=== PATIENT | female | born 1970 | race Caucasian/White ===

== ENCOUNTER → 2020-01-10 10:40 | Outpatient (CLI) | payer MEDICAID, SELFPAY | PROVIDERS: Visit Provider Family Medicine | DX: Z03.818 Encounter for observation for suspected exposure to other biological agents ruled out (principal) | CPT/HCPCS: 87635; U0003 ==

== ENCOUNTER 2024-01-18 10:19 | Observation (INO) | payer MEDICAID, SELFPAY ==
[2024-01-18] VITALS (17 sets, daily range): BP systolic 108–148; BP diastolic 82–99; PULSE 76–102; RESP 14–22; TEMP 36.7–37.2; O2SAT 93–99; BMI 31.3; BMI 27.6
--- NOTE | 2024-01-18 10:29 | EKG12_ITS ---
Test Reason : STROKE ALRT Blood Pressure : */* mmHG Vent. Rate : 72 BPM Atrial Rate : 72 BPM P-R Int : 130 ms QRS Dur : 92 ms QT Int : 396 ms P-R-T Axes : 36 26 36 degrees QTcB Int : 433 ms Normal sinus rhythm Normal ECG Confirmed by Dirk Lay ([id number]), film editor JENNIFER OTTO ([id number]) on 01/19/2024 6:32:53 AM Referred By: Confirmed By: Dirk Lay
--- NOTE | 2024-01-18 10:30 | ED.VIS.STROK ---
HPI History of Present Illness Chief Complaint: Weakness Informant: patient Narrative Narrative: Patient is a 53-year-old female with history of diabetes mellitus, TIA presenting with left sided weakness and paresthesias. Patient states he felt fine when she went to bed last night. She notes she has had some increased stress as she thought she is having gallbladder issues but they said there is maybe a cancer but she is not clear on this. She reports that 6 AM she was rushing to go to work and felt fine but noticed as she was going to work and throughout the day that her left arm and to a lesser extent her left leg did not feel right. She states that her left arm just feels weird, weak and slow to respond to her. She notes that she was dropping things. 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 She also feels the same but to a lesser degree in her leg. She states for the past few days she has been feeling lightheaded and had a headache. She states is gradual in onset, persistence and in the back of her head and the top of her head. She felt that it was likely related to stress. She states with a prior TIA she had dizziness syncope and left arm symptoms. She is not on any blood thinners. She came in for further evaluation. [facility] Medical History (Updated 01/18/24 @ 16:[address] Elsa Hollingsworth, ) Anxiety Depression Diabetes Rheumatoid arthritis GERD (gastroesophageal reflux disease) Pancreatitis Non-smoker Hypertension Wandering pacemaker Atrial fibrillation TIA (transient ischemic attack) Home Medications ?Medication ?Instructions ?Recorded ?Last Taken ?Type albuterol sulfate 90 mcg/actuation 2 puff inhalation Q4H PRN PRN 01/18/24 Unknown History aerosol inhaler bronchospasm duloxetine 60 mg capsule,delayed 120 mg PO DAILY 01/18/24 Unknown History release ertugliflozin 15 mg tablet 15 mg PO DAILY 01/18/24 Unknown History ([place]) insulin detemir U-100 100 unit/mL 45 unit subcut QHS 01/18/24 Unknown History (3 mL) subcutaneous pen insulin lispro 100 unit/mL 24 unit subcut .TIDAC 01/18/24 Unknown History subcutaneous pen lorazepam 1 mg tablet 1 mg PO Q8H PRN PRN anxiety 01/18/24 Unknown History losartan 100 1 tab PO DAILY 01/18/24 Unknown History mg-hydrochlorothiazide 25 mg tablet ondansetron 4 mg disintegrating 4 mg PO Q8H PRN PRN nausea 01/18/24 Unknown History tablet pantoprazole 40 mg tablet,delayed 40 mg PO DAILY 01/18/24 Unknown History release Allergy/AdvReac Type Severity Reaction Status Date / Time Iodinated Contrast Media (IV Allergy Intermediate sores Verified 01/18/24 10:20 dye) Sulfa (Sulfonamide Allergy Mild Rash Verified 01/18/24 10:20 Antibiotics) ketorolac (From Toradol) AdvReac Mild Other Verified 01/18/24 10:20 Social History Smoking Status: Never smoker ROS ROS ED Constitutional Constitutional ED: Denies chills or fever(s) Eyes Eyes: Denies change in vision Cardiovascular Cardiovascular: Denies chest pain Respiratory/Chest Respiratory/Chest: Denies cough Gastrointestinal Gastrointestinal: Denies abdominal pain, nausea or vomiting Musculoskeletal Musculoskeletal: Denies arthralgias or myalgias Integumentary Denies rash Neurologic Neurologic: Reports headache(s), paresthesias LUE, weakness and other Details: Will subtle weakness of the left extremities, arm worse than leg Psychiatric Psychiatric: Reports anxiety Hematologic/Lymphatic Hematologic/Lymphatic: Denies easy bleeding or easy bruising EXAM Physical Exam Const Vital Signs: 01/18/24 10:20 01/18/24 10:23 01/18/24 10:25 Temperature 99 F Temperature Source Oral Pulse Rate 90 Respiratory Rate 14 Respiratory Effort Normal Non-Labored Respiratory Pattern Normal Blood Pressure 138/82 H Blood Pressure Mean 100 Pulse Ox 97 Oxygen Delivery Method Room Air 01/18/24 10:29 01/18/24 10:30 01/18/24 10:58 Temperature 99 F 98.9 F Temperature Source Oral Oral Pulse Rate 90 80 78 Respiratory Rate 18 14 17 Respiratory Effort Respiratory Pattern Blood Pressure 134/86 H 135/87 H 118/82 H Blood Pressure Mean 102 103 94 Pulse Ox 97 96 95 Oxygen Delivery Method Room Air Room Air Room Air 01/18/24 11:29 01/18/24 11:30 01/18/24 12:00 Temperature Temperature Source Pulse Rate 91 98 76 Respiratory Rate 18 14 22 H Respiratory Effort Respiratory Pattern Blood Pressure 133/91 H 133/91 H 135/99 H Blood Pressure Mean 105 105 111 Pulse Ox 98 99 98 Oxygen Delivery Method Room Air Room Air Room Air 01/18/24 12:30 01/18/24 13:00 01/18/24 13:30 Temperature 98.8 F Temperature Source Oral Pulse Rate 79 78 93 Respiratory Rate 18 18 17 Respiratory Effort Respiratory Pattern Blood Pressure 134/83 H 133/91 H 142/87 H Blood Pressure Mean 100 105 105 Pulse Ox 97 96 97 Oxygen Delivery Method Room Air Room Air Room Air 01/18/24 14:00 01/18/24 14:30 Temperature Temperature Source Pulse Rate 78 79 Respiratory Rate 18 16 Respiratory Effort Respiratory Pattern Blood Pressure 142/87 H 108/86 H Blood Pressure Mean 105 93 Pulse Ox 97 97 Oxygen Delivery Method Room Air Room Air Positive well nourished and well developed General Appearance ED: well developed and NAD HEENT Reports moist mucous membranes Eyes PERRL Neck supple and no JVD Chest Wall inspection of chest normal and palpation of chest normal Resp normal respiratory effort and clear to auscultation bilaterally Cardio Rate: regular rate Rhythm: regular rhythm GI normal to inspection, nondistended, normoactive bowel sounds, soft to palpation and non-tender Extremity normal to inspection General Extremety ED: Negative for deformity or edema General Extremity: Negative for deformity or edema Neuro oriented x3 Neuro Narrative: Sensation intact throughout but subjective paresthesias to the left side of the face as well as the left upper extremity. There is subtle drift to the left upper extremity and left lower extremity. Sensorium / Orientation: alert Speech: speech normal Psych mental status grossly normal Skin no wounds Lesions: no lesions Rashes: no rashes NIHSS NIHSS Initial: 1a Level of Consciousness: 0 1b LOC Questions (Score 2 if aphasic/stupor): 0 1c LOC Commands (Only score 1st attempt): 0 2 Best Gaze (If aphasic, use reflexive mvmts.): 0 3 Visual: 0 4 Facial Palsy: 0 5 Motor Arm Right (UN = amputation/fusion): 0 5 Motor Arm Left: 1 6 Motor Leg Right: 0 6 Motor Leg Left: 1 7 Limb ataxia (Only + if out of proportion): 0 8 Sensory (Aphasia/stupor=0 or 1, coma=2): 1 9 Best Language: 0 10 Dysarthria (mute, coma=2, intubated=UN): 0 11 Extinction and Inattention (only scored if +): 0 Total Score: 3 MDM MDM MDM Narrative Medical decision making narrative: Patient is evaluated for left-sided weakness and paresthesias. Last known well was 6 AM. Stroke alert is called in the room. Patient reports an allergy to IV contrast stating it causes sores in her mouth. Will hold off on CTA at this time. She states she has been premedicated with Benadryl in the past and it makes it not as bad. Differential includes TIA, stroke, intracranial hemorrhage, conversion reaction, meningitis (lower suspicion she does not have a fever or nuchal rigidity), aneurysm (lower suspicion she does not report a thunderclap headache) and complex migraine. Case discussed with teleneurology from [facility], Dr. Neal. She is recommending TNK based on the patient's symptoms but she states that she is borderline. Patient then tells is that she has bleeding disorder which she states is [place] bleeding disorder. We looked this up and this seems to be most similar to a beta thalassemia phenotype. Patient reports issues with bleeding with surgeries and would like to defer TNK at this time. She will be admitted for further stroke evaluation. CTA of the head and neck does not show any acute process. The case is the main physician, Dr. Burdick. Lab Data Attestation: I reviewed the patient's lab results. Labs: Laboratory Results - last 24 hr 01/18/24 01/18/24 10:08 10:45 WBC 4.3 L RBC 5.98 H Hgb 13.5 Hct 42.2 MCV 70.6 L MCH 22.6 L MCHC 32.0 RDW Std Deviation 39.4 RDW Coeff of Jose 16.9 H Plt Count 202 MPV 10.9 Immature Gran % (Auto) 0.200 Neut % (Auto) 46.8 L Lymph % (Auto) 39.4 [place] % (Auto) 7.6 Eos % (Auto) 5.5 H Baso % (Auto) 0.5 Absolute Neuts (auto) 2.0 Absolute Lymphs (auto) 1.71 Nucleated RBC % 0 PT 13.4 INR 1.0 APTT 29.1 Sodium 139 Potassium 3.6 Chloride 103 Carbon Dioxide 32.0 Anion Gap 4 L BUN 18 Creatinine 0.77 Estim Creat Clear Calc 73.53 Est GFR (MDRD) Af Amer 100 Est GFR (MDRD) Non-Af 83 BUN/Creatinine Ratio 23.4 H Glucose 314 H Calcium 9.8 Troponin I High Sens 4 Urine Color Yellow Urine Clarity Sl. Cloudy Urine pH 6.0 Ur Specific [place] 1.015 Urine Protein 30 H Urine Glucose (UA) 1000 H Urine Ketones Negative Urine Occult Blood Negative Urine Nitrite Negative Urine Bilirubin Negative Urine Urobilinogen Normal Ur Leukocyte Esterase Negative Urine RBC 0 SEEN Urine WBC 0 SEEN Ur Squamous Epith Cells 0-5 SEEN Urine Bacteria 1+ Urine Mucus 1+ Radiography Diagnostic Testing: Clinical Impression(s) from Imaging Studies Brain CT 01/18/24 10:34 IMPRESSION: Negative Brain CT without contrast. N.B. : The above Results were Read Back by Serafin Heard MD to Elsa Hollingsworth DO, and understanding confirmed on 01/18/2024 10:39:56 (ET). Electronically Signed: Serafin Heard MD at 10:40 EST , ADDENDUM: 01/18/24 1047 IMPRESSION: Negative Brain CT without contrast. N.B. : The above Results were Read Back by Serafin Heard MD to Elsa Hollingsworth DO, and understanding confirmed on 01/18/2024 10:39:56 (ET). Electronically Signed: Serafin Heard MD at 10:40 EST , Head/Neck CTA 01/18/24 11:07 IMPRESSION: No CTA evidence of ICA or CCA stenosis No intracranial vaso-occlusive disease or significant stenosis. No demonstrated aneurysm or vascular malformation Electronically Signed: Serafin Heard MD at 13:19 EST , Chest X-Ray 01/18/24 11:11 IMPRESSION: Normal x-ray examination of the chest. Electronically Signed: Serafin Heard MD at 11:30 EST , Rhythm Strip Rhythm Strip: Sinus Rhythm Rate: 72 Ectopy: None EKG Initial EKG: Attestation: I personally reviewed and interpreted this EKG as follows: Interpretation: Sinus Rhythm Comments: Normal sinus rhythm rate of 72 bpm Normal axis Normal intervals Normal ST segments Prior EKG tracings: not available for review Prior: No Prior Management Discussion w/another healthcare provider: Hospitalist and Grocery Store Associate Discharge Plan Dx/Rx/DC Orders Clinical Impression: Left-sided weakness Disposition Disposition: Acute Care Hospital [facility] Discharge Date/Time: 01/18/24 14:58
--- NOTE | 2024-01-18 10:34 | CT_ITS ---
INDICATION: Mental status change, confusion EXAMINATION: CT BRAIN - CT Head Stroke Protocol W/O Contrast Injection TECHNIQUE: Multiple axial images were obtained of the head without intravenous contrast. The protocol utilizes one or more of the following dose reduction techniques: automated exposure control, adjustment of mA and/or kV according to patient size,and/or use of iterative reconstruction technique. IV Contrast dosage and agent: None. RADIATION DOSAGE (If Supplied By Facility): CTDIvol = ( ) mGy, DLP = ( ) mGycm COMPARISON: No relevant prior comparison study available FINDINGS: BRAIN PARENCHYMA: No intra- or extra-axial hemorrhage. No evidence of acute infarct. No intracranial mass or mass effect. There is preservation of the balder[place]/white matter interface. Posterior fossa structures are unremarkable. CSF SPACES: Appropriate for age. No hydrocephalus. Basal cisterns are patent. CALVARIUM, SKULL BASE, PARANASAL SINUSES AND MASTOID AIR CELLS: Clear. No discrete lytic or blastic abnormalities. ORBITS: Both globes, extraocular muscles, optic nerves and retrobulbar fat appear unremarkable. ASPECTS Score for Acute Strokes: 10 CT/STROKE Brain/Head without Cont IMPRESSION: Negative Brain CT without contrast. N.B. : The above Results were Read Back by Serafin Heard MD to Elsa Hollingsworth DO, and understanding confirmed on 01/18/2024 10:39:56 (ET). Electronically Signed: Serafin Heard MD at 10:40 EST ,
--- NOTE | 2024-01-18 10:38 | ED.RN ---
neurologist on tele robot at 1038.
[2024-01-18 10:39] LABS: Absolute Lymphocyte Count 1.71 X10^3/uL (0.83-4.51); Basophil# 0.02 X10^3/uL; Basophil% 0.5 % (0-1); Eosinophil# 0.24 X10^3/uL; Eosinophils% 5.5 % (0-5); Hematocrit 42.2 % (37-47); Hemoglobin 13.5 g/dL (12.0-15.0); Lymphocyte # 1.71 X10^3/ul (0.83-4.51); Lymphocyte % 39.4 % (19-41); Mean Corpuscular Hgb 22.6 pg (27.0-32.0); Mean Corpuscular Volume 70.6 fL (81-99); Mean Platelet Vol. 10.9 fl (6.2-12.0); Monocyte# 0.33 X10^3/uL; Monocyte% 7.6 % (0-10); NRBC Flagged by Analyzer 0 % (0-5); Neutrophil # 2.03 X10^3/uL (2.7-7.7); Neutrophil % 46.8 % (47-70); Platelet Count 202 K/mm3 (150-450); RBC Distribution Width CV 16.9 % (11.6-14.6); RBC Distribution Width SD 39.4 fl (35.1-43.9); Red Blood Count 5.98 M/mm3 (4.2-5.4); White Blood Count 4.3 K/mm3 (4.4-11.0)
--- NOTE | 2024-01-18 10:46 | ED.RN ---
Dr. Hollingsworth at bedside talking with neurologist. Discussing bleeding disorder with patient to determine tenectaplase candidate.
[2024-01-18 10:49] LABS: Prothrombin Time (Protime)PT. 13.4 SECONDS (11.7-14.9)
--- NOTE | 2024-01-18 10:49 | ED.RN ---
pt denied wanting tenectaplase at this time. will monitor with scans.
[2024-01-18 10:50] LABS: Partial Thromboplast Time 29.1 Seconds (24.1-36.2)
[2024-01-18 10:57] LABS: Anion Gap 4 (5-15); BUN 18 mg/dL (7-18); BUN/Creat Ratio 23.4 RATIO (10-20); Calcium,Total 9.8 mg/dL (8.5-10.1); Chloride 103 mmol/L (98-107); Creatinine, Serum 0.77 mg/dL (0.55-1.02); EST Glomerular Filtration Rate 83 mL/min (>60); Est Glom Filt Rate - Afr Amer 100 mL/min (>60); Estimated Creatinine Clearance 73.53 ml/min; Glucose 314 mg/dL (74-106); Potassium 3.6 mmol/L (3.5-5.1); Sodium Level 139 mmol/L (136-145); Troponin-I HS 4 pg/mL (3.0-54.0)
[2024-01-18 10:58] LABS: Red Blood Cells-Urine 0 SEEN /hpf (0-5); White Blood Cells 0 SEEN /hpf (0-5)
[2024-01-18 11:04] LABS: Color, Urine Yellow (Yellow); Glucose, Dipstick 1000 mg/dl (Normal); Ketone-Dipstick Negative (Negative); Leukocyte Esterase-Dipstick Negative /ul (Negative); Nitrite-Dipstick Negative (Negative); Occult Blood-Urine Negative /ul (Negative); Protein-Dipstick 30 mg/dl (Negative); Specific Gravity, Urine 1.015 (1.002-1.030); Urine Bilirubin Dipstick Negative (Negative); Urine Clarity Sl. Cloudy (Clear); Urine Urobilinogen Normal (Normal)
--- NOTE | 2024-01-18 11:07 | CT_ITS ---
STUDY: CTA HEAD AND NECK WITH CONTRAST REASON FOR EXAM: Female, 53 years old. stroke symptoms- left sided weakness RADIATION DOSAGE (If Supplied By Facility): CTDIvol = ( 20.04 ) mGy, DLP = ( 713.82 ) mGycm TECHNIQUE: CT angiography was performed with a multi-detector CT scanner. Data acquisition was obtained from the skull base through the vertex following intravenous administration of IV 100mL [id number]-[id number]. MIP images were reconstructed from the axial data set. Post-processing of the angiographic images was performed, with multiplanar reformation and 3D reconstruction. Individualized dose optimization techniques were used for this CT. COMPARISON: No relevant priors. FINDINGS: Normal bilateral petrous carotid arteries. Normal right cavernous carotid artery with a normal supraclinoid bifurcation. Normal left cavernous carotid artery with a normal supraclinoid bifurcation. Normal right A1 segments of the anterior cerebral artery. Normal left A1 segments of the anterior cerebral artery. Normal intact anterior communicating artery (ACOM). Normal bilateral A2 segments of the anterior cerebral arteries. Normal right M1 and M2 segments of the middle cerebral arteries, with a normal M1 bifurcation. Normal left M1 and M2 segments of the middle cerebral arteries, with a normal M1 bifurcation. Normal right posterior communicating artery (PCOM). Normal left posterior communicating artery (PCOM). Normal bilateral vertebral arteries. Normal basilar artery with a normal basilar bifurcation. The visualized bilateral superior cerebellar (SCA) arteries are normal. Normal bilateral P1, P2 and visualized P3 segments of the posterior cerebral arteries. There is no demonstrated aneurysm of the [place]. There is no demonstrated abnormality of the visualized brain. AORTIC ARCH: Normal visualized aortic arch. Normal origins of the brachiocephalic, left common carotid, and left subclavian arteries. RIGHT CAROTID ARTERIES: Normal right common carotid artery (CCA). Normal right common carotid bulb. Normal origin of the right internal carotid (ICA) artery without a hemodynamically significant stenosis. Normal visualized cervical portion of the right internal carotid artery. Normal origin of the right external carotid artery (ECA). LEFT CAROTID ARTERIES: Normal left common carotid artery (CCA). Normal left common carotid bulb. Normal origin of the left internal carotid (ICA) artery without a hemodynamically significant stenosis. Normal visualized cervical portion of the left internal carotid artery. Normal origin of the left external carotid artery (ECA). VERTEBRAL ARTERIES: Normal bilateral vertebral arteries. No suspicious enhancing lesion, no airway narrowing or deviation. No suspicious adenopathy. Thyroid gland and apices are normal CT/CTA Head AND Neck W/ Contrast IMPRESSION: No CTA evidence of ICA or CCA stenosis No intracranial vaso-occlusive disease or significant stenosis. No demonstrated aneurysm or vascular malformation Electronically Signed: Serafin Heard MD at 13:19 EST ,
--- NOTE | 2024-01-18 11:11 | RAD_ITS ---
STUDY: X-RAY CHEST REASON FOR EXAM: Female, 53 years old. Chest pain, cough TECHNIQUE: Single AP portable view of the chest. COMPARISON: None. FINDINGS: EKG leads overlie the chest The lungs are clear and expanded. There is no demonstrated pleural abnormality. Normal size heart. Normal mediastinum and lex. Normal visualized pulmonary arteries. Normal visualized aortic arch and descending thoracic aorta. Normal visualized thoracic spine. Normal visualized ribs, clavicles, and shoulders. There is no demonstrated abnormality of the visualized soft tissue structures of the upper abdomen. RAD/Chest 1 View IMPRESSION: Normal x-ray examination of the chest. Electronically Signed: Serafin Heard MD at 11:30 EST ,
[2024-01-18 11:17] LABS: Bacteria 1+ /hpf (None Seen); Mucous, Urine 1+ /hpf (<or=2+); Squamous Epithelial Cells - UA 0-5 SEEN /hpf (5-10)
[2024-01-18] MEDS: DiphenhydrAMINE 50 MG/ML Syringe IV (11:17)
--- NOTE | 2024-01-18 11:29 | CHAPLAIN ---
Type of Pastoral Visit ___ Initial Visit ___ Follow-up Visit ___ On-call Visit ___ General Patient Visit ___ Spiritual Assessment ___ Family Conference ___ Bereavement _x__ Rapid Response ___ Code Blue ___ Other (describe below) Pastoral Care Referral From ___ Patient ___ Family ___ Nurse ___ Physician ___ Rubble Placer ___ Ball Thread Machine Tender _x__ Other (describe below) Sacrament/Intervention ___ Active listening ___ Anointing ___ Orthodoxy ___ Bereavement ___ Communion ___ Amy exploration ___ ___ Life review ___ Prayer ___ Reconciliation ___ Sacrament of Sick _x__ Supportive presence ___ Wedding ___ Other (describe below) Pastoral Comments responded to stroke alert in ED; patient was in CT but then was returned to the room; pt is alert and oriented; no family members are present; neuro evaluation was about to begin; SW will check on the patient soon
[2024-01-18] MEDS: LORazepam 1 MG Tablet PO ×2 (11:46→18:25)
--- NOTE | 2024-01-18 13:18 | CM.ED ---
Social work Reason for referral: stroke alert This SW entered patient?s room with CAN Kong who was providing patient with Ativan to help ease patient?s anxiety. SW introduced self and role at [facility]. Patient stated she was hopeful the Ativan would also help her restless legs because patient knows she needs a CT scan soon. Patient expressed being claustrophobic and not enjoying the thought of having to get a CT scan. Patient stated she takes Ativan as needed at home and ?this situation needs it.? Patient reported being at work this morning when she ?felt weird? and decided to come to the ED. 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 Patient reported having 5 children and 5 grandchildren and patient denied SW need to call anyone to be with her. Patient stated she has been in contact with them already. SW provided emotional support as needed and encouraged patient to ask for SW should other needs arise. Plan: awaiting CT scan and results; SW to follow as needs arise. Jodie Oneal, CHASER HELPER, SWITCHBOARD TROUBLESHOOTER
--- NOTE | 2024-01-18 14:44 | HP.PCM.HOS_ITS ---
HPI - General General Date of Admission: 01/18/24 Date of Service: 01/18/24 Chief Complaint: CVA r/o HPI Narrative JESUS GARCIA, is a 53y/o F with history of TIA, anxiety, hypertension, GERD, diabetes who presented [facility] left-sided weakness and paresthesias. [place] fine when she went to bed last night but woke up and symptoms started at 7 AM. She has had some increased stress because she was having gallbladder issues and thought that there may be cancer but she was not sure. At 6 AM she was rushing to go to work and felt fine but then noticed throughout the day that her left arm into the left her extent her left leg did not feel right. She feels her left arm is weaker and slow to respond and that she has been dropping things and the same is true but to a lesser degree with the leg. Also has been feeling a little lightheaded over the past couple days with headache which has been gradual onset and in the back of the top of her head that she thinks is stress related. Has prior TIA with dizziness and syncope and left arm symptoms. Patient was stroke call in ED and had NIH of 3. 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 CT head and CTA head and neck without acute process, it was recommended patient be admitted for stroke workup. Patient evaluated bedside with family members present. She reports that she woke up and had a headache (the start in the back of the head went towards the top and is bilateral in nature )and felt a little dizzy and then when she got to work she noticed her left arm felt a little bit odd and that her leg and the leg felt heavy and became hard to walk. It was worsening so she presented to the ED. Family member at bedside also reports that they noticed facial droop and slurring of her speech but the slurring speech has been improving. Patient feels overall arm and headache/symptoms are about the same. She does endorse she has been intermittently cold over the past couple days, intermittently has a stuffy nose, has had some blurred vision in both eyes over the past 1 month, some intermittent nausea and vomiting and right upper abdominal pain over the past month as well which she was told was her liver and she is currently undergoing workup. Also has a couple small scattered blotches on legs. 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 She previously was referred to hospital coder but was never able to make the appointment. No other new or acute complaints [facility] Medical History TIA (transient ischemic attack) Home Medications ?Medication ?Instructions ?Recorded ?Last Taken ?Type albuterol sulfate 90 mcg/actuation 2 puff inhalation Q4H PRN PRN 01/18/24 Unknown History aerosol inhaler bronchospasm duloxetine 60 mg capsule,delayed 120 mg PO DAILY 01/18/24 Unknown History release ertugliflozin 15 mg tablet 15 mg PO DAILY 01/18/24 Unknown History ([place]) insulin detemir U-100 100 unit/mL 45 unit subcut QHS 01/18/24 Unknown History (3 mL) subcutaneous pen insulin lispro 100 unit/mL 24 unit subcut .TIDAC 01/18/24 Unknown History subcutaneous pen lorazepam 1 mg tablet 1 mg PO Q8H PRN PRN anxiety 01/18/24 Unknown History losartan 100 1 tab PO DAILY 01/18/24 Unknown History mg-hydrochlorothiazide 25 mg tablet ondansetron 4 mg disintegrating 4 mg PO Q8H PRN PRN nausea 01/18/24 Unknown History tablet pantoprazole 40 mg tablet,delayed 40 mg PO DAILY 01/18/24 Unknown History release Allergy/AdvReac Type Severity Reaction Status Date / Time Iodinated Contrast Media (IV Allergy Intermediate sores Verified 01/18/24 10:20 dye) Sulfa (Sulfonamide Allergy Mild Rash Verified 01/18/24 10:20 Antibiotics) ketorolac (From Toradol) AdvReac Mild Other Verified 01/18/24 10:20 Social History Smoking Status: Never smoker ROS ROS Narrative General: Feels little bit cold HENT: Headache that goes from the back of the head to the top of the head in his bilateral, denies stuffy nose, denies sore throat EYES: Some blurry vision in both eyes over the past month or so Resp: Denies cough, denies shortness of breath Cardiac: Denies chest pain GI: Some right upper quadrant abdominal pain, some intermittent nausea and vomiting : Denies changes in urination Extremity: Denies swelling MSK: Left upper and lower extremity weakness Neuro: Some possible left-sided paresthesias Heme: Denies any bleeding or bruising Skin: Has a couple small blotches on her shins Psychiatric: Has had a lot of stress recently Vital Signs Vital Signs Vital Signs: 01/18/24 10:20 01/18/24 10:23 01/18/24 10:25 Temperature 99 F Temperature Source Oral Pulse Rate 90 Respiratory Rate 14 Respiratory Effort Normal Non-Labored Respiratory Pattern Normal Blood Pressure 138/82 H Blood Pressure Mean 100 Pulse Ox 97 Oxygen Delivery Method Room Air 01/18/24 10:29 01/18/24 10:30 01/18/24 10:58 Temperature 99 F 98.9 F Temperature Source Oral Oral Pulse Rate 90 80 78 Respiratory Rate 18 14 17 Respiratory Effort Respiratory Pattern Blood Pressure 134/86 H 135/87 H 118/82 H Blood Pressure Mean 102 103 94 Pulse Ox 97 96 95 Oxygen Delivery Method Room Air Room Air Room Air 01/18/24 11:29 01/18/24 11:30 01/18/24 12:00 Temperature Temperature Source Pulse Rate 91 98 76 Respiratory Rate 18 14 22 H Respiratory Effort Respiratory Pattern Blood Pressure 133/91 H 133/91 H 135/99 H Blood Pressure Mean 105 105 111 Pulse Ox 98 99 98 Oxygen Delivery Method Room Air Room Air Room Air 01/18/24 12:30 01/18/24 13:00 01/18/24 13:30 Temperature 98.8 F Temperature Source Oral Pulse Rate 79 78 93 Respiratory Rate 18 18 17 Respiratory Effort Respiratory Pattern Blood Pressure 134/83 H 133/91 H 142/87 H Blood Pressure Mean 100 105 105 Pulse Ox 97 96 97 Oxygen Delivery Method Room Air Room Air Room Air Weight Weight: 72.8 kg Body Mass Index (BMI) 31.3 Physical Exam Narrative General: Alert, oriented, no apparent distress HEENT: Atraumatic, patient with left lower facial droop Eyes: Anicteric, normal conjunctiva, extraocular movements intact, pupils equal Neck: Supple Respiratory: Clear to auscultation bilaterally, normal respiratory effort Cardiovascular: Regular rate and rhythm GI: Soft, nontender, nondistended Extremities: No edema Musculoskeletal: Strength 5 out of 5 in right upper extremity, 4- out of 5 left upper extremity, 5 out of 5 right lower extremity, 4 out of 5 left lower extremity Neuro: Left lower facial droop, otherwise cranial nerves II through XII intact, [id number] without significant difficulty on right side, limited on left side due to weakness in arm Skin: A couple very small scattered red splotches mostly noted on right cooper, minimal Psych: Cooperative Results Lab / Micro Data 01/18/24 10:08 01/18/24 10:08 Labs: Laboratory Results - last 24 hr 01/18/24 10:08: WBC 4.3 L, RBC 5.98 H, Hgb 13.5, Hct 42.2, MCV 70.6 L, MCH 22.6 L, MCHC 32.0, RDW Std Deviation 39.4, RDW Coeff of Jose 16.9 H, Plt Count 202, MPV 10.9, Immature Gran % (Auto) 0.200, Neut % (Auto) 46.8 L, Lymph % (Auto) 39.4, [place] % (Auto) 7.6, Eos % (Auto) 5.5 H, Baso % (Auto) 0.5, Absolute Neuts (auto) 2.0, Absolute Lymphs (auto) 1.71, Nucleated RBC % 0, PT 13.4, INR 1.0, APTT 29.1, Sodium 139, Potassium 3.6, Chloride 103, Carbon Dioxide 32.0, Anion Gap 4 L, BUN 18, Creatinine 0.77, Estim Creat Clear Calc 73.53, Est GFR (MDRD) Af Amer 100, Est GFR (MDRD) Non-Af 83, BUN/Creatinine Ratio 23.4 H, Glucose 314 H, Calcium 9.8, Troponin I High Sens 4 01/18/24 10:45: Urine Color Yellow, Urine Clarity Sl. Cloudy, Urine pH 6.0, Ur Specific [place] 1.015, Urine Protein 30 H, Urine Glucose (UA) 1000 H, Urine Ketones Negative, Urine Occult Blood Negative, Urine Nitrite Negative, Urine Bilirubin Negative, Urine Urobilinogen Normal, Ur Leukocyte Esterase Negative, Urine RBC 0 SEEN, Urine WBC 0 SEEN, Ur Squamous Epith Cells 0-5 SEEN, Urine Bacteria 1+, Urine Mucus 1+ Imaging Radiology Impression Brain CT 01/18/24 10:34 IMPRESSION: Negative Brain CT without contrast. N.B. : The above Results were Read Back by Serafin Heard MD to Elsa Hollingsworth DO, and understanding confirmed on 01/18/2024 10:39:56 (ET). Electronically Signed: Serafin Heard MD at 10:40 EST , ADDENDUM: 01/18/24 1047 IMPRESSION: Negative Brain CT without contrast. N.B. : The above Results were Read Back by Serafin Heard MD to Elsa Hollingsworth DO, and understanding confirmed on 01/18/2024 10:39:56 (ET). Electronically Signed: Serafin Heard MD at 10:40 EST , Head/Neck CTA 01/18/24 11:07 IMPRESSION: No CTA evidence of ICA or CCA stenosis No intracranial vaso-occlusive disease or significant stenosis. No demonstrated aneurysm or vascular malformation Electronically Signed: Serafin Heard MD at 13:19 EST , Chest X-Ray 01/18/24 11:11 IMPRESSION: Normal x-ray examination of the chest. 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
--- NOTE | 2024-01-18 14:55 | ECHOD_ITS ---
Reason For Study: TIA/CVA Procedure This was a 2D Doppler, Color Flow transthoracic echocardiogram. Exam performed portable in patient room. Left Ventricle Normal LV size. The estimated ejection fraction is 65 %. No evidence for diastolic dysfunction. No regional wall motion abnormalities noted. Right Ventricle Normal RV size. Normal systolic function. Atria The left and right atria are normal. Bubble contrast study is negative for PFO/ASD. Mitral Valve There is no mitral valve stenosis. No mitral valve insufficiency. Tricuspid Valve There is no tricuspid stenosis. Trivial tricuspid valve insufficiency. Pulmonary artery systolic pressure is 30 mmHg. Aortic Valve There is no aortic stenosis. No aortic valve insufficiency. Pulmonic Valve There is no pulmonic valvular stenosis. No pulmonic valve insufficiency. Great Vessels Normal aortic root. Pericardium/Pleural No pericardial effusion. Medication Performed a rapid injection of agitated mix of 9 cc saline and 1cc air to assess for atrial septal defect. MMode/2D Measurements & Calculations LVIDd: 4.2 cm IVSd: 1.1 cm LVOT diam: 2.1 cm LVIDs: 2.5 cm LVPWd: 1.0 cm RVDd: 2.9 cm FS: 39.6 % LVOT area: 3.4 cm2 asc Aorta Diam: 3.1 cm LAV(MOD-bp): 29.4 ml LVAd ap4: 22.3 cm2 LAV(MOD-bp) Indexed: 17.3 ml/m2 LVLd ap4: 7.0 cm LAV(MOD-sp2): 33.8 ml EDV(MOD-sp4): 57.8 ml LAV(MOD-sp4): 26.5 ml EDV(sp4-el): 60.1 ml LVAs ap4: 11.0 cm2 LVLs ap4: 5.9 cm ESV(MOD-sp4): 17.4 ml ESV(sp4-el): 17.6 ml EF(MOD-sp4): 69.9 % EF(sp4-el): 70.7 % LVAd ap2: 17.9 cm2 SV(MOD-sp4): 40.4 ml SV(MOD-sp2): 29.1 ml LVLd ap2: 6.5 cm SI(MOD-sp4): 23.8 ml/m2 SI(MOD-sp2): 17.1 ml/m2 EDV(MOD-sp2): 41.6 ml EDV(sp2-el): 42.1 ml LVAs ap2: 9.0 cm2 LVLs ap2: 5.4 cm ESV(MOD-sp2): 12.6 ml ESV(sp2-el): 12.8 ml EF(MOD-sp2): 69.8 % SV(sp4-el): 42.4 ml Ao sinus diam: 3.[address] Junction: 2.5 cm LA dimension(2D): 3.1 cm LA A4 area: 12.5 cm2 RA A4 area: 8.9 cm2 TAPSE: 2.0 cm Time Measurements MV dec time: 0.17 sec Doppler Measurements & Calculations MV E max jacques: 77.3 cm/sec Lat Peak E' Jacques: 10.5 cm/sec Med Peak E' Jacques: 9.0 cm/sec MV A max jacques: 93.3 cm/sec E/E' lat: 7.3 E/E' med: 8.6 MV E/A: 0.83 MV dec slope: 465.0 cm/sec2 Ao V2 max: 141.4 cm/sec LV V1 max: 98.7 cm/sec Ao max P.0 mmHg LV V1 max P.9 mmHg Ao V2 mean: 103.6 cm/sec LV V1 mean P.3 mmHg Ao mean P.6 mmHg LV V1 mean: 72.2 cm/sec Ao V2 VTI: 25.7 cm LV V1 VTI: 19.2 cm AV (velocity ratio): 0.74 WALTER(I,D): 2.5 cm2 WALTER(V,D): 2.3 cm2 SV(LVOT): 64.5 ml PA V2 max: 101.7 cm/sec TR max jacques: 240.8 cm/sec TR max P.2 mmHg ECHO/Echo Complete Interpretation Summary The estimated ejection fraction is 65 %. No evidence for diastolic dysfunction. Ordering Physician: Yasmine Burdick Performed By: Kena Chadwick RDCS
--- NOTE | 2024-01-18 14:55 | MRI_ITS ---
STUDY: MRI BRAIN WITHOUT CONTRAST REASON FOR EXAM: Female, 53 years old. CVA r/o TECHNIQUE: Standardized multiplanar fat and water weighted pulse sequences were obtained. COMPARISON: CT of the brain January 18, 2024 FINDINGS: Normal size of the ventricles and extra-axial spaces for the patient''s age. Mild periventricular white matter ischemic change without mass effect or restricted diffusion. Normal bilateral basal ganglia. Normal thalami. There is no extra-axial fluid accumulation. Normal flow voids within the major intracranial circulation suggesting patency by spin echo criteria. Normal sella turcica, pituitary gland, infundibular stalk, optic chiasm and hypothalamus. Normal tectal plate and pineal gland. There is a small focal area of restricted diffusion within the right pontine body most likely representing acute lacunar infarct. Normal midbrain, and medulla. Normal cerebellum. Normal basal cisterns. Normal bilateral temporal bones. Normal bilateral internal auditory canals. No demonstrated orbital abnormality, within the constraints of a routine brain study. Normal visualized paranasal sinuses. Normal calvarium and skull base. Normal visualized soft tissue structures. Normal visualized upper cervical spine. MRI/Brain without Contrast IMPRESSION: Findings consistent with acute lacunar infarct in the right pontine body. Mild bilateral chronic periventricular white matter ischemic changes without evidence for acute infarct N.B. : The above Results were Read Back by Bharat Fermin MD to Anjum Wan MD, and understanding confirmed on 01/18/2024 21:17:36 (ET). Electronically Signed: Bharat Fermin MD at 20:37 EST ,
--- NOTE | 2024-01-18 15:20 | CASEMGMT ---
Care Management Face to Face with patient for initial transition planning/care coordination assessment in the ED. This SW was already in patient room earlier in the day for stroke alert, but this SW re-introduced self and role at [facility] to patient?s guests. Patient?s daughter, Shelley, and [id number], uLz, were present at bedside. Patient lying in bed, alert and oriented and gave permission for SW conversation to occur with guests present. Patient willing to participate in assessment and is able to answer all questions appropriately. Care providers, pharmacy, and demographics verified. Admitting Diagnosis: CVA r/o Other diagnosis history: TIA, hypertension, diabetes PCP: Akua Mckeon Specialists: used to see Dr. Arnold (microsoft bi architect at [facility]), but reports needing to go through now (nothing is set up) [facility]erred [facility]) Insurance: [facility] Community Plan Medicaid Prescription Benefit: yes Living Will/HPOA: none currently, but patient requested information and may want to complete while admitted. LNOK: patient has 5 kids and 5 grandkids. Daughter, Shelley, and [id number], Luz, present at bedside. Living Arrangements: patient reports 8 people live in her home (patient, 3 of her kids, and 4 of her grandkids). 2 story home with 4 steps to enter from the front; 2 steps to enter from the back. Once inside, there are 10 total stairs (with a landing) to get to the only bathroom in the home. Bedrooms are upstairs as well. Transportation: patient drives, but she does not have reliable transportation. She reports driving Shelley?s car if needed for appointments. DME: glucometer and testing strips. She is expecting to get a T[place]aine glucose monitor soon, but the pharmacy reported them being on backorder. HHC: no past or current HHC. SNF/Rehab: no past or current SNF/rehab. Community Resources: has food stamps, but patient reports they ?go quickly? with 8 people living in the home. Will benefit from further resources. Patient goals: Patient wishes to discharge home, denies need for home health at this time. Patient states she would like some resources for food and transportation. Disposition Plan: admission to acute; RN GOGO/SW team to follow for discharge planning needs that may arise. MARISOL Bruce, TERMITE RENEWAL INSPECTOR
[2024-01-18] MEDS: Aspirin 81 MG TAB.CHEW PO (17:05)
[2024-01-18] MEDS: Insulin Lispro 100 UNIT/ML INSULN.PEN SC ×2 (17:05→22:01)
[2024-01-18] MEDS: Insulin Lispro 100 UNIT/ML INSULN.PEN 15 UNIT SC (17:06)
[2024-01-18 18:35] LABS: Bedside Glucose 419 mg/dL (74-106)
[2024-01-18] MEDS: Acetaminophen 325 MG Tablet 650 MG PO (20:17)
--- NOTE | 2024-01-18 21:28 | PN.HOSP_ITS ---
Hospitalist Note I was contacted at approximately 9:15 PM by [facility] with patient having MRI positive for Right pontine lacunar CVA. There was no evidence of bleeding. VB DEVELOPER updated with result. [facility] Imaging Services [address] [place], [place] [id number] Brain without Contrast MR#: [id number] Acct: [id number] Name: JESUS GARCIA Rep #: [id number] : 1970 F [id number] From: Bharat Fermin MD PCP: Akua Mckeon NP-C Status: ADM JOSE Study: Brain without Contrast Date of Exam: 01/18/24 Exam# [id number] Ordering Dr: Yasmine Burdick MD STUDY: MRI BRAIN WITHOUT CONTRAST REASON FOR EXAM: Female, 53 years old. CVA r/o TECHNIQUE: Standardized multiplanar fat and water weighted pulse sequences were obtained. COMPARISON: CT of the brain January 18, 2024 FINDINGS: Normal size of the ventricles and extra-axial spaces for the patient''s age. Mild periventricular white matter ischemic change without mass effect or restricted diffusion. Normal bilateral basal ganglia. Normal thalami. There is no extra-axial fluid accumulation. Normal flow voids within the major intracranial circulation suggesting patency by spin echo criteria. Normal sella turcica, pituitary gland, infundibular stalk, optic chiasm and hypothalamus. Normal tectal plate and pineal gland. There is a small focal area of restricted diffusion within the right pontine body most likely representing acute lacunar infarct. Normal midbrain, and medulla. Normal cerebellum. Normal basal cisterns. Normal bilateral temporal bones. Normal bilateral internal auditory canals. No demonstrated orbital abnormality, within the constraints of a routine brain study. Normal visualized paranasal sinuses. Normal calvarium and skull base. Normal visualized soft tissue structures. Normal visualized upper cervical spine. MRI/Brain without Contrast IMPRESSION: Findings consistent with acute lacunar infarct in the right pontine body. Mild bilateral chronic periventricular white matter ischemic changes without evidence for acute infarct N.B. : The above Results were Read Back by Bharat Fermin MD to Anjum Wan MD, and understanding confirmed on 01/18/2024 21:17:36 (ET). Electronically Signed: Bharat Fermin MD at 20:37 EST , CC: KIMBERLY Mckeon; Dr. Yasmine Burdick MD ~ Director Cloud Transformation: Signed
[2024-01-18] MEDS: Insulin Glargine-YFGN 100 UNIT/ML Pen 40 UNIT SC (22:01)
[2024-01-18] MEDS: MELATONIN 3 MG TABLET PO (22:14)
[2024-01-18 22:33] LABS: Bedside Glucose 425 mg/dL (74-106)
[2024-01-19] VITALS (8 sets, daily range): BP systolic 105–145; BP diastolic 50–94; PULSE 72–102; RESP 16–17; TEMP 36.4–36.8; O2SAT 96–98; BMI 27.6
[2024-01-19 00:47] LABS: Bedside Glucose 312 mg/dL (74-106)
[2024-01-19 07:36] LABS: Absolute Lymphocyte Count 1.35 X10^3/uL (0.83-4.51); Absolute Neutrophil Count 5.2 X10^3/uL (2.0-7.7); Basophil# 0.02 X10^3/uL; Basophil% 0.3 % (0-1); Eosinophil# 0.02 X10^3/uL; Eosinophils% 0.3 % (0-5); Hematocrit 40.8 % (37-47); Hemoglobin 12.9 g/dL (12.0-15.0); Lymphocyte # 1.35 X10^3/ul (0.83-4.51); Lymphocyte % 19.3 % (19-41); Mean Corp Hgb Conc 31.6 g/dL (32-36); Mean Corpuscular Hgb 22.4 pg (27.0-32.0); Mean Corpuscular Volume 70.8 fL (81-99); Mean Platelet Vol. 11.9 fl (6.2-12.0); Monocyte# 0.44 X10^3/uL; Monocyte% 6.3 % (0-10); NRBC Flagged by Analyzer 0 % (0-5); Neutrophil # 5.15 X10^3/uL (2.7-7.7); Neutrophil % 73.4 % (47-70); Platelet Count 206 K/mm3 (150-450); RBC Distribution Width SD 39.8 fl (35.1-43.9); Red Blood Count 5.76 M/mm3 (4.2-5.4)
[2024-01-19 08:36] LABS: Prothrombin Time (Protime)PT. 13.6 SECONDS (11.7-14.9)
[2024-01-19] MEDS: Insulin Lispro 100 UNIT/ML INSULN.PEN SC ×2 (09:47→13:05)
[2024-01-19] MEDS: Insulin Lispro 100 UNIT/ML INSULN.PEN 15 UNIT SC ×2 (09:48→12:59)
[2024-01-19] MEDS: Aspirin 81 MG TAB.CHEW PO (09:57)
[2024-01-19] MEDS: Pantoprazole Sodium 40 MG Tablet PO (09:57)
[2024-01-19] MEDS: DULoxetine Hcl 60 MG Capsule 120 MG PO (09:57)
[2024-01-19 10:09] LABS: Bedside Glucose 292 mg/dL (74-106)
[2024-01-19 10:37] LABS: Hemoglobin A1c 8.4 % (3.8-5.6)
--- NOTE | 2024-01-19 13:09 | STROKE.CONS ---
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 MRi confirms R pontine infarct. Stroke etiology small vessel disease, likely from uncontrolled diabetes and suspected sleep apnea. Plan: LDL pending. TTE read pending. Start aspirin 81mg daily. Load with clopidogrel 300mg now and then do 75mg daily. Will do both aspirin and clopidogrel for 21 days then stop clopidogrel and continue aspirin indefnitely. Switch to rosuvastatin 20mg daily (has tried atorvastatin in the past and didn't like the way it made her feel). Emphasized strict diabetes control. 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 Recommend 30 day heart monitor at discharge to screen for atrial fibrillation (given remote history of arrhythmia secondary to caffeine use). 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 01/18/24 acute onset LUE/LLE weakness and sensory changes. NIHSS 3. Telestroke evaluated and offered TNK but ultimately decided not to give due to nondisabling symptoms and hemoglobinopathy. CT/CTA neg. MRI brain w/ R pontine infarct. ?A1c 8.4%. Of note, she was diagnosed with an irregular heart rhythm thought to be atrial fibrillation 21 years ago when she was drinking a lot of caffeine. Her issues resolved when she stopped using caffeine and her gathering machine feeder thought this was an isolated event so no long-term medications. [facility] Medical History (Updated 01/18/24 @ 16:[address] Elsa Hollingsworth, ) Anxiety Depression Diabetes Rheumatoid arthritis GERD (gastroesophageal reflux disease) Pancreatitis Non-smoker Hypertension Wandering pacemaker Atrial fibrillation TIA (transient ischemic attack) Home Medications ?Medication ?Instructions ?Recorded ?Last Taken ?Type albuterol sulfate 90 mcg/actuation 2 puff inhalation Q4H PRN PRN 01/18/24 Unknown History aerosol inhaler bronchospasm duloxetine 60 mg capsule,delayed 120 mg PO DAILY 01/18/24 Unknown History release ertugliflozin 15 mg tablet 15 mg PO DAILY 01/18/24 Unknown History (Steglatro) insulin detemir U-100 100 unit/mL 45 unit subcut QHS 01/18/24 Unknown History (3 mL) subcutaneous pen insulin lispro 100 unit/mL 24 unit subcut .TIDAC 01/18/24 Unknown History subcutaneous pen lorazepam 1 mg tablet 1 mg PO Q8H PRN PRN anxiety 01/18/24 Unknown History losartan 100 1 tab PO DAILY 01/18/24 Unknown History mg-hydrochlorothiazide 25 mg tablet ondansetron 4 mg disintegrating 4 mg PO Q8H PRN PRN nausea 01/18/24 Unknown History tablet pantoprazole 40 mg tablet,delayed 40 mg PO DAILY 01/18/24 Unknown History release Allergy/AdvReac Type Severity Reaction Status Date / Time Iodinated Contrast Media (IV Allergy Intermediate sores Verified 01/18/24 10:20 dye) Sulfa (Sulfonamide Allergy Mild Rash Verified 01/18/24 10:20 Antibiotics) ketorolac (From Toradol) AdvReac Mild Other Verified 01/18/24 10:20 Social History Smoking Status: Never smoker Vital Signs Vital Signs Vital Signs: 01/18/24 13:30 01/18/24 14:00 01/18/24 14:30 Temperature 98.8 F Temperature Source Oral Pulse Rate 93 78 79 Pulse Strength Respiratory Rate 17 18 16 Respiratory Effort Respiratory Depth Respiratory Pattern Blood Pressure 142/87 H 142/87 H 108/86 H Blood Pressure Mean 105 105 93 Blood Pressure Source Blood Pressure Position Blood Pressure Location Pulse Ox 97 97 97 Oxygen Delivery Method Room Air Room Air Room Air 01/18/24 14:53 01/18/24 15:19 01/18/24 16:18 Temperature 98.9 F 98.2 F Temperature Source Oral Pulse Rate 77 87 Pulse Strength Respiratory Rate 18 18 Respiratory Effort Normal Non-Labored Respiratory Depth Normal Respiratory Pattern Normal Blood Pressure 118/82 H 148/87 H Blood Pressure Mean 94 107 Blood Pressure Source Monitor Blood Pressure Position Semi-Fowlers Blood Pressure Location Left Arm Pulse Ox 97 93 Oxygen Delivery Method Room Air Room Air 01/18/24 17:15 01/18/24 20:10 01/19/24 00:08 Temperature 98.3 F 98.1 F Temperature Source Oral Oral Pulse Rate 88 102 H Pulse Strength Respiratory Rate 16 16 Respiratory Effort Respiratory Depth Respiratory Pattern Blood Pressure 135/84 H 147/85 H Blood Pressure Mean 101 105 Blood Pressure Source Monitor Monitor Blood Pressure Position Semi-Fowlers Supine Blood Pressure Location Left Arm Left Arm Pulse Ox 95 96 96 Oxygen Delivery Method Room Air Room Air Room Air 01/19/24 00:10 01/19/24 04:10 01/19/24 08:10 Temperature 98.1 F 98.1 F 97.7 F L Temperature Source Oral Oral Oral Pulse Rate 90 72 80 Pulse Strength Respiratory Rate 16 16 16 Respiratory Effort Respiratory Depth Respiratory Pattern Blood Pressure 137/82 H 120/73 105/50 L Blood Pressure Mean 100 88 68 Blood Pressure Source Monitor Monitor Monitor Blood Pressure Position Semi-Fowlers Semi-Fowlers Semi-Fowlers Blood Pressure Location Left Arm Right Arm Left Arm Pulse Ox 96 97 96 Oxygen Delivery Method Room Air Room Air Room Air 01/19/24 08:25 01/19/24 09:30 01/19/24 09:35 Temperature Temperature Source Pulse Rate Pulse Strength Normal (2+) Respiratory Rate Respiratory Effort Respiratory Depth Respiratory Pattern Blood Pressure Blood Pressure Mean Blood Pressure Source Blood Pressure Position Blood Pressure Location Pulse Ox 97 Oxygen Delivery Method Room Air Room Air 01/19/24 12:10 Temperature 98.2 F Temperature Source Oral Pulse Rate 88 Pulse Strength Respiratory Rate 17 Respiratory Effort Respiratory Depth Respiratory Pattern Blood Pressure 128/74 H Blood Pressure Mean 92 Blood Pressure Source Monitor Blood Pressure Position Semi-Fowlers Blood Pressure Location Left Arm Pulse Ox 96 Oxygen Delivery Method Room Air Weight Weight: 64.2 kg Body Mass Index (BMI) 27.6 NIHSS NIHSS Nursing Documentation NIHSS Nursing Documentation: NIH Stroke Scale Start: 01/18/24 10:26 Freq: Status: Discharge Protocol: Activity Type Activity Date Activity User E-sign Co-sign Detail Recorded Client Recorded Date Recorded By Document 01/18/24 10:25 AMB [id number] 01/18/24 10:27 AMB 01/18/24 10:25 NIH Stroke Scale [NIHSS] A score of 0 is normal or asymptomatic . Total possible score is 42. Inpatient: RN or Physician to activate a stroke alert for onset of new stroke symptoms or with NIHSS increase >/= 3 points. Following change in neurological status, NIHSS will be performed per physician order or more frequently PRN. -1a. Level of Consciousness Alert; keenly responsive -1b. LOC Questions Answers BOTH questions correctly. -1c. LOC Commands Performs both tasks correctly . -2. Best Gaze Normal -3. Visual No visual loss -4. Facial Palsy Normal symmetrical movements -5a. Left Arm Drift; arm drifts downward but doesn?t hit the bed -5b. Right Arm No drift; arm holds 90 (or 45 ) degrees for full 10 seconds -6a. Left Leg Drift; leg falls by the end of 5- seconds, but does not hit bed -6b. Right Leg No drift; leg holds 30-degree position for full 5 seconds -7. Limb Ataxia Absent -8. Sensory Mild-to- moderate sensory loss; -9. Best Language No aphasia; normal -10. Dysarthria Normal -11. Extinction and Inattention No abnormality -Total 3 Query Text:A score of 0 is normal or asymptomatic. Total possible score is 42 . ED: Notify Physician for NIHSS increase by > / = 3 points. Inpatient: RN or Physician to activate a stroke alert for NIHSS increase of > / = 3 points. NIHSS: Ischemic Stroke/TIA Start: 01/18/24 15:03 Text: For PCU Patients: NIH and Neuro Check every 4 Status: Active hours, PRN and with change in RN caregiver. Freq: [id number] Protocol: Activity Type Activity Date Activity User E-sign Co-sign Detail Recorded Client Recorded Date Recorded By Document 01/19/24 12:10 [id number] 01/19/24 12:17 01/19/24 12:10 -1a. Level of Consciousness Alert; keenly responsive -1b. LOC Questions Answers BOTH questions correctly. -1c. LOC Commands Performs both tasks correctly . -2. Best Gaze Normal -3. Visual No visual loss -4. Facial Palsy Normal symmetrical movements -5a. Left Arm Drift; arm drifts downward but doesn?t hit the bed -5b. Right Arm No drift; arm holds 90 (or 45 ) degrees for full 10 seconds -6a. Left Leg Drift; leg falls by the end of 5- seconds, but does not hit bed -6b. Right Leg No drift; leg holds 30-degree position for full 5 seconds -7. Limb Ataxia Absent -8. Sensory Mild-to- moderate sensory loss; -9. Best Language No aphasia; normal -10. Dysarthria Normal -11. Extinction and Inattention No abnormality -Total 3 Query Text:A score of 0 is normal or asymptomatic. Total possible score is 42 . ED: Notify Physician for NIHSS increase by > / = 3 points. Inpatient: RN or Physician to activate a stroke alert for NIHSS increase of > / = 3 points. Coma Scale [Assess] -Eye Opening Spontaneous -Motor Obeys Commands -Verbal Oriented [Total] -Coma Scale Total 15 NIHSS 1a. Level of Consciousness: Alert; keenly responsive 1b. LOC Questions: Answers BOTH questions correctly. 1c. LOC Commands: Performs both tasks correctly. 2. Best Gaze: Normal 3. Visual: No visual loss 4. Facial Palsy: Normal symmetrical movements 5a. Left Arm: Drift; arm drifts downward but doesn?t hit the bed 5b. Right Arm: No drift; arm holds 90 (or 45) degrees for full 10 seconds 6a. Left Leg: Drift; leg falls by the end of 5-seconds, but does not hit bed 6b. Right Leg: No drift; leg holds 30-degree position for full 5 seconds 7. Limb Ataxia: Absent 8. Sensory: [id number] sensory loss; 9. Best Language: No aphasia; normal 10. Dysarthria: Normal 11. Extinction and Inattention: No abnormality Total: 3 Physical Exam Narrative LUE/LLE drift doesn?t hit bed Slowed finger tapping on the left Decreased sensation on the left. NIHSS 3 (LUE 1, LLE 1, sensation 1) mRS 2 Lab / Micro Data 01/19/24 03:20 01/18/24 10:08 Labs: Laboratory Results - last 24 hr 01/18/24 17:04: POC Glucose 419 H 01/18/24 22:00: POC Glucose 425 H 01/19/24 00:27: POC Glucose 312 H 01/19/24 03:20: WBC 7.0, RBC 5.76 H, Hgb 12.9, Hct 40.8, MCV 70.8 L, MCH 22.4 L, MCHC 31.6 L, RDW Std Deviation 39.8, RDW Coeff of Jose 16.0 H, Plt Count 206, MPV 11.9, Immature Gran % (Auto) 0.400, Neut % (Auto) 73.4 H, Lymph % (Auto) 19.3, [place] % (Auto) 6.3, Eos % (Auto) 0.3, Baso % (Auto) 0.3, Absolute Neuts (auto) 5.2, Absolute Lymphs (auto) 1.35, Nucleated RBC % 0, PT 13.6, INR 1.0, Hemoglobin A1c 8.4 H 01/19/24 09:46: POC Glucose 292 H Rhythm Strip Rhythm Strip: Sinus Rhythm Rate: 72 Ectopy: None Imaging Radiology Impression Head/Neck CTA 01/18/24 11:07 IMPRESSION: No CTA evidence of ICA or CCA stenosis No intracranial vaso-occlusive disease or significant stenosis. No demonstrated aneurysm or vascular malformation Electronically Signed: Serafin Heard MD at 13:19 EST Reading Location ID and State: [facility] / [place] , Service support , Brain MRI 01/18/24 14:55 IMPRESSION: Findings consistent with acute lacunar infarct in the right pontine body. Mild bilateral chronic periventricular white matter ischemic changes without evidence for acute infarct N.B. : The above Results were Read Back by Bharat Fermin MD to Anjum Wan MD, and understanding confirmed on 01/18/2024 21:17:36 (ET). Electronically Signed: Bharat Fermin MD at 20:37 EST , Active Medications Active Medications Active Medications: Current Medications Generic Name Dose Route Start Last Admin Trade Name Freq PRN Reason Stop Dose Admin Acetaminophen 650 mg 01/18/24 15:03 01/18/24 20:17 Acetaminophen 325 Mg Tablet PO 650 mg Q6H PRN PRN Administration Pain 1-10 Or Fever >100.7 Albuterol Sulfate 2.5 mg 01/18/24 15:03 Albuterol 2.5 Mg/3 Ml Vial.Neb. INHALATION Q2H PRN PRN SOB &/OR WHEEZING Aspirin 81 mg 01/19/24 08:00 01/19/24 09:57 Aspirin 81 Mg Tab.Chew PO 81 mg BREAKFAST JUSTINA Administration Atorvastatin Calcium 80 mg 01/18/24 22:00 01/18/24 20:18 Atorvastatin Calcium 80 Mg Tablet PO Not Given QHS JUSTINA Duloxetine HCl 120 mg 01/19/24 10:00 01/19/24 09:57 Duloxetine Hcl 60 Mg Capsule PO 120 mg DAILY JUSTINA Administration Glucagon 1 mg 01/18/24 15:03 Glucagon 1 Mg/Ml Syringe IM X1 PRN HYPOGLYCEMIA Protocol Hydralazine HCl 5 mg 01/18/24 15:03 Hydralazine 20 Mg/Ml Vial IV 01/19/24 15:03 Q30M PRN maintain BP parameters with HR <60 Sodium Chloride 500 mls @ 15 mls/hr 01/18/24 15:01 IV .[id number] PRN Saline Flush Sodium Chloride 500 mls @ 15 mls/hr 01/18/24 15:01 IV .[id number] PRN Additional IVPB Infusion Dextrose 250 mls @ 0 mls/hr 01/18/24 15:03 Dextrose 10%-Water IV .Q0M PRN HYPOGLYCEMIA Protocol As Directed Insulin Glargine 40 unit 01/18/24 22:00 01/18/24 22:01 Insulin Glargine-Yfgn 100 Unit/Ml Pen SC 40 unit QHS JUSTINA Administration Insulin Human Lispro 0 unit 01/18/24 16:00 01/19/24 13:05 Insulin Lispro 100 Unit/Ml Insuln.Pen SC 5 units ACHS JUSTINA Administration Protocol Insulin Human Lispro 15 unit 01/18/24 16:00 01/19/24 12:59 Insulin Lispro 100 Unit/Ml Insuln.Pen SC 15 unit TIDAC JUSTINA Administration Iopamidol 0 ml 01/18/24 11:15 01/19/24 12:01 Contrast Allergy Safety Check IV Not Given X1 [facility] Labetalol HCl 10 - 20 mg 01/18/24 15:03 Labetalol (Prefilled) 20 Mg/4 Ml Vial IV 01/19/24 15:03 Q10M PRN PRN maintain BP parameters with HR >/=60 Lorazepam 1 mg 01/19/24 10:00 01/18/24 18:25 Lorazepam 1 Mg Tablet PO 1 mg X1 PRN Administration Anxiety with MRI Lorazepam 1 mg 01/18/24 15:03 Lorazepam 1 Mg Tablet PO Q8H PRN PRN anxiety Melatonin 3 mg 01/18/24 15:03 01/18/24 22:14 Melatonin 3 Mg Tablet PO 3 mg QHS PRN PRN Administration INSOMNIA Ondansetron HCl 4 mg 01/18/24 15:03 Ondansetron 4 Mg/2 Ml Vial IV Q8H PRN PRN NAUSEA/VOMITING Pantoprazole Sodium 40 mg 01/19/24 10:00 01/19/24 09:57 Pantoprazole Sodium 40 Mg Tablet PO 40 mg DAILY JUSTINA Administration Senna/Docusate Sodium 2 tablet 01/18/24 15:03 Senna/Docusate Sodium 1 Tablet PO BID PRN PRN Constipation Sodium Chloride 10 - 40 ml 01/18/24 15:01 0.9% Saline Lock 10 Ml Syringe IV UD PRN SALINE FLUSH
[2024-01-19 13:24] LABS: Bedside Glucose 310 mg/dL (74-106)
[2024-01-19 14:07] LABS: ALB/GLOB Ratio 1.1 RATIO (0.9-2.4); AST(SGOT) 23 U/L (15-37); Alanine Aminotransfer ALT/SGPT 38 U/L (13-56); Albumin, Serum 3.6 g/dL (3.2-5.0); Alkaline Phosphatase 138 U/L (45-117); Anion Gap 11 (5-15); BUN 20 mg/dL (7-18); BUN/Creat Ratio 26.8 RATIO (10-20); Calcium,Total 9.2 mg/dL (8.5-10.1); Chloride 102 mmol/L (98-107); Cholesterol 235 mg/dL (200); Creatinine, Serum 0.75 mg/dL (0.55-1.02); EST Glomerular Filtration Rate 86 mL/min (>60); Est Glom Filt Rate - Afr Amer 104 mL/min (>60); Estimated Creatinine Clearance 70.89 ml/min; Globulin 3.2 g/dL (2.2-4.2); Glucose 342 mg/dL (74-106); High Density Lipoprotein 38 mg/dL; Potassium 3.7 mmol/L (3.5-5.1); Protein, Total 6.8 g/dL (6.4-8.2); Sodium Level 137 mmol/L (136-145); Thyroid Stim Hormone (TSH) 0.332 uIU/mL (0.358-3.740); Triglycerides 396 mg/dL; Very Low Density Lipoprotein 79 mg/dL (5-40)
--- NOTE | 2024-01-19 15:10 | CASEMGMT ---
SW completed a PHQ 9 with patient as she had a Stroke. Patient scored a 3 which indicates minimal depression. Patient denied any need for counseling resources. Anupama ROA
--- NOTE | 2024-01-19 15:12 | CASEMGMT ---
SW was informed by ED SW that patient would benefit from food resources. SW confirmed with patient that she would appreciate food resources. SW provided patient with food resources for [facility]. Anupama ROA
--- NOTE | 2024-01-19 16:27 | PCM.DC ---
Discharge Instructions Diet Discharge Diet: 1800 Calorie Control Diet DC O2, CPAP, BIPAP needs Additional Home O2 Discharge instructions: No Dressing / Incision Discharge Activity: Return to Normal Activity Weight Bearing Status: Full weight bearing Follow Up Care Test Results: Test results from this visit will be discussed in further detail at your follow-up appointment, if applicable. Discharge Plan Admission Admit Date/Time: 01/18/24 14:44 Primary Reason for Your Visit: acute stroke Attending Provider: Lorenzo Hare Primary Care Provider: Akua Mckeon Consulting Providers: Yasmine Burdick Instructions Additional Instructions / Restrictions: Finish out the prescription for clopidogrel, then remain on aspirin 81 mg daily indefinitely Do not forget to follow-up with outpatient therapy Neurology has suggested that you wear a 30-day cafeteria monitor, discussed this with your family practitioner in 2 weeks when you have your appointment, your family practitioner can order it for you, this is ordered to rule out any cardiac rhythm abnormalities such as atrial fibrillation Discharge Orders/Prescriptions Prescriptions: New atorvastatin 80 mg Tablet 80 mg PO QHS Qty: 30 0RF aspirin 81 mg Tablet,Chewable 81 mg PO BREAKFAST Qty: 0 0RF clopidogrel [Plavix] 75 mg tablet 75 mg PO DAILY Qty: 21 0RF Rx Instructions: start on 01/20/24 Continued duloxetine 60 mg capsule,delayed release(DR/EC) 120 mg PO DAILY albuterol sulfate 90 mcg/actuation HFA aerosol inhaler 2 puff inhalation Q4H PRN PRN (Reason: bronchospasm) losartan-hydrochlorothiazide 100-25 mg tablet 1 tab PO DAILY pantoprazole 40 mg tablet,delayed release (DR/EC) 40 mg PO DAILY lorazepam 1 mg tablet 1 mg PO Q8H PRN PRN (Reason: anxiety) ondansetron 4 mg tablet,disintegrating 4 mg PO Q8H PRN PRN (Reason: nausea) insulin detemir U-100 100 unit/mL (3 mL) insulin pen 45 unit subcut QHS Steglatro 15 mg tablet 15 mg PO DAILY insulin lispro 100 unit/mL insulin pen 24 unit subcut .TIDAC Referrals / Follow Up: Akua Mckeon, MAINTENANCE CONTROLLER-C [Primary Care Provider] - Within 2 Weeks Disposition Disposition (needs filled in before D/C Order can be placed): Home, Self Care
--- NOTE | 2024-01-19 16:32 | CASEMGMT ---
Patient has order for discharge. Therapy recommending outpatient therapy at discharge. CAN BOWENS in to discuss needs at discharge. Patient agreeable to outpatient therapy and would like to schedule on her own at facility of choice. Patient denied further needs or help at discharge. Patient had no further questions or concerns. CAN BOWENS updated hospitalist and script received. CAN BOWENS placed script in discharge packet with [facility] information.
--- NOTE | 2024-01-19 16:39 | DS.PCM_ITS ---
Providers Date of Admission: 01/18/24 Date of Discharge: 01/19/24 Primary Care Physician: KIMBERLY Gannon Consultations 01/18/24 15:03 Consult: Tele-Neurology Routine Consulting Provider: [facility] Reason for Consult: Acute Ischemic Stroke/TIA EMERGENT Consult: No MD Notified: Yes Date Notified: 01/18/24 Time Notified: 15:12 Method of Notification: Answering Service Nursing Unit Staff Notify [facility] of Tele-Neurology Consult: Yes Reason For Visit: LEFT SIDED WEAKNESS Diagnosis Discharge Diagnosis (1) Left-sided weakness: Status: Acute Code(s): R53.1 - Weakness Plan 1. Left-sided weakness and paresthesias-etiology unknown #2 type 2 diabetes #3 chronic migraine cephalgia #4 essential hypertension #5 hyperlipidemia Medications at Discharge Home Medications albuterol sulfate 90 mcg/actuation aerosol inhaler 2 puff inhalation Q4H PRN PRN bronchospasm 01/18/24 duloxetine 60 mg capsule,delayed release 120 mg PO DAILY mental health 01/18/24 ertugliflozin 15 mg tablet (Steglatro) 15 mg PO DAILY diabetes 01/18/24 insulin detemir U-100 100 unit/mL (3 mL) subcutaneous pen 45 unit subcut QHS diabetes 01/18/24 insulin lispro 100 unit/mL subcutaneous pen 24 unit subcut .TIDAC diabetes 01/18/24 lorazepam 1 mg tablet 1 mg PO Q8H PRN PRN anxiety 01/18/24 losartan 100 mg-hydrochlorothiazide 25 mg tablet 1 tab PO DAILY blood pressure 01/18/24 ondansetron 4 mg disintegrating tablet 4 mg PO Q8H PRN PRN nausea 01/18/24 pantoprazole 40 mg tablet,delayed release 40 mg PO DAILY reflux 01/18/24 aspirin 81 mg chewable tablet 81 mg PO BREAKFAST #0 tabs 01/19/24 clopidogrel 75 mg tablet (Plavix) 75 mg PO DAILY #21 tabs 01/19/24 rosuvastatin 20 mg tablet (Crestor) 20 mg PO DAILY #30 tabs 01/19/24 Hospital Course Operations None Procedures 2-D Echocardiogram Summary of Care Provided Minutes Spent on Discharge: 31 Hospital Course: This 53-year-old white female was seen in the emergency room at [facility] with complaints of left-sided weakness and paresthesias. Patient states that since 6 AM that day she noticed her left arm did not feel Zima is a right arm and it was slow to respond. Patient also noted that she was dropping things. Patient's NIH score was 3, a stroke alert was called and due to an allergy to IV contrast dye a CTA was not performed initially, CTs scan of the brain was negative without contrast. Teleneurology from [facility] recommended TNK based on the patient's symptoms but felt she was borderline for administration of the medication. TNK was not administered due to the patient's history of bleeding disorder. CTA of the head and neck was finally performed which did not show any acute process. CHEM panel was unremarkable except for glucose of 314. Patient was placed in observation status on PCU, NIH scores were monitored and the patient underwent an echocardiogram which was unremarkable and was seen by PT OT and speech therapy. MRI of the brain was performed, it showed evidence consistent with an acute lacunar infarct in the right pontine body. It was recommended that the patient have an outpatient PT and OT. On 01/19/2024, patient was seen and examined: On examination she appeared in good health and spirits, she does not appear to be in any distress. Vital signs as documented. Skin warm and dry and without overt rashes. Neck without JVD, thyroid appears normal, trachea is midline, neck is supple. Lungs clear, normal air movement was noted. Heart exam notable for regular rhythm, normal sounds and absence of murmurs, rubs or gallops. Abdomen unremarkable and without evidence of organomegaly, masses, or abdominal aortic enlargement, bowel sounds are present in all 4 quadrants, no abdominal tenderness was noted. Extremities nonedematous, no cyanosis was noted, no clubbing was noted. Neuro: Cranial nerves II through XII are grossly intact, no focal motor deficits were noted, sensation to light touch and pinprick is intact, motor exam 5/5 throughout. Psych: Patient is alert and oriented x3, she does not appear anxious or depressed, she does not appear agitated. On 01/19/2024, patient appears stable for discharge home, she was placed on atorvastatin, aspirin, and Plavix per recommendation of teleneurology. Weight / BMI Weight Weight: 64.2 kg Body Mass Index (BMI) 27.6 ABG / Lab / Microbiology Data 01/19/24 03:20 01/19/24 03:20 Laboratory: Laboratory Results - last 24 hr 01/18/24 17:04: POC Glucose 419 H 01/18/24 22:00: POC Glucose 425 H 01/19/24 00:27: POC Glucose 312 H 01/19/24 03:20: WBC 7.0, RBC 5.76 H, Hgb 12.9, Hct 40.8, MCV 70.8 L, MCH 22.4 L, MCHC 31.6 L, RDW Std Deviation 39.8, RDW Coeff of Jose 16.0 H, Plt Count 206, MPV 11.9, Immature Gran % (Auto) 0.400, Neut % (Auto) 73.4 H, Lymph % (Auto) 19.3, [place] % (Auto) 6.3, Eos % (Auto) 0.3, Baso % (Auto) 0.3, Absolute Neuts (auto) 5.2, Absolute Lymphs (auto) 1.35, Nucleated RBC % 0, PT 13.6, INR 1.0, Sodium 137, Potassium 3.7, Chloride 102, Carbon Dioxide 24.0, Anion Gap 11, BUN 20 H, Creatinine 0.75, Estim Creat Clear Calc 70.89, Est GFR (MDRD) Af Amer 104, Est GFR (MDRD) Non-Af 86, BUN/Creatinine Ratio 26.8 H, Glucose 342 H, Hemoglobin A1c 8.4 H, Calcium 9.2, Total Bilirubin 0.40, AST 23, ALT 38, Alkaline Phosphatase 138 H, Total Protein 6.8, Albumin 3.6, Globulin 3.2, Albumin/Globulin Ratio 1.1, Triglycerides 396 H, Cholesterol 235 H, LDL Cholesterol 118, VLDL Cholesterol 79 H, HDL Cholesterol 38 L, TSH 0.332 L 01/19/24 09:46: POC Glucose 292 H 01/19/24 13:04: POC Glucose 310 H Radiography Diagnostic Testing: Radiology Impression Brain MRI 01/18/24 14:55 IMPRESSION: Findings consistent with acute lacunar infarct in the right pontine body. Mild bilateral chronic periventricular white matter ischemic changes without evidence for acute infarct N.B. : The above Results were Read Back by Bharat Fermin MD to Anjum Wan MD, and understanding confirmed on 01/18/2024 21:17:36 (ET). Electronically Signed: Bharat Fermin MD at 20:37 EST Reading Location ID and State: [facility] / [place] Tel , Service support , Echocardiogram 01/18/24 14:55 Interpretation Summary The estimated ejection fraction is 65 %. No evidence for diastolic dysfunction. Ordering Physician: Yasmine Burdick Performed By: Kena Chadwick RDCS D/C Instructions Discharge Diet: 1800 Calorie Control Diet Weight Bearing Status: Full weight bearing DC O2, CPAP, BIPAP Needs Additional Home O2 Discharge instructions: No DC home with Oxygen: No Meaningful Use Info Meaningful Use Meaningful Use Diagnoses (Choose all that apply): Ischemic CVA CVA Therapy Assessed for PT,OT and/or ST?: Yes Ischemic Stroke Antithrombotic order at d/c?: Yes Dx of Atrial fib/flutter?: No Anticoagulant at discharge?: No Reason anticoagulant not ordered: Treatment not Indicated Statin Dosing Therapy Reference: STATIN DOSE THERAPY REFERENCE: * Patients > 75 years receive moderate or high dose statin therapy. * Patients 75 years or YOUNGER should receive HIGH intensity statin dose unless contraindicated. You will be required to document reason for non-treatment if statin daily dose does not meet guidelines. HIGH DOSE STATIN THERAPY DAILY Atorvastatin > than or = to 40 mg Rosuvastatin > than or = to 20 mg Amlodipine + Atorvastatin > than or = to 2.5/40 mg Ezetimibe + Simvastatin 10/80 mg Simvastatin 80mg Statins at discharge?: Yes If patient is 75 or younger, pt will be discharged on HIGH intensity statin.: Y es Primary Dx Acute Ischemic CVA?: Yes IV thrombolytic ordered during stay?: No Reason IV thrombolytic not ordered: Treatment Refused by Pt Discharge Plan Admission Admit Date/Time: 01/18/24 14:44 Primary Reason for Your Visit: acute stroke Attending Provider: Lorenzo Hare Primary Care Provider: Akua Mckeon Consulting Providers: Yasmine Burdick Instructions Additional Instructions / Restrictions: Finish out the prescription for clopidogrel, then remain on aspirin 81 mg daily indefinitely Do not forget to follow-up with outpatient therapy Neurology has suggested that you wear a 30-day engine monitor, discussed this with your family practitioner in 2 weeks when you have your appointment, your family practitioner can order it for you, this is ordered to rule out any cardiac rhythm abnormalities such as atrial fibrillation Discharge Orders/Prescriptions Prescriptions: New aspirin 81 mg Tablet,Chewable 81 mg PO BREAKFAST Qty: 0 0RF clopidogrel [Plavix] 75 mg tablet 75 mg PO DAILY Qty: 21 0RF Rx Instructions: start on 01/20/24 rosuvastatin [Crestor] 20 mg tablet 20 mg PO DAILY Qty: 30 0RF Continued duloxetine 60 mg capsule,delayed release(DR/EC) 120 mg PO DAILY albuterol sulfate 90 mcg/actuation HFA aerosol inhaler 2 puff inhalation Q4H PRN PRN (Reason: bronchospasm) losartan-hydrochlorothiazide 100-25 mg tablet 1 tab PO DAILY pantoprazole 40 mg tablet,delayed release (DR/EC) 40 mg PO DAILY lorazepam 1 mg tablet 1 mg PO Q8H PRN PRN (Reason: anxiety) ondansetron 4 mg tablet,disintegrating 4 mg PO Q8H PRN PRN (Reason: nausea) insulin detemir U-100 100 unit/mL (3 mL) insulin pen 45 unit subcut QHS Steglatro 15 mg tablet 15 mg PO DAILY insulin lispro 100 unit/mL insulin pen 24 unit subcut .TIDAC Referrals / Follow Up: Akua Mckeon, [employer] [Primary Care Provider] - Within 2 Weeks Disposition Disposition (needs filled in before D/C Order can be placed): Home, Self Care Charges/Coding Visit Charges Inpatient E&M: 85021 Disch Hosp >30min
[2024-01-19] MEDS: Clopidogrel Bisulfate 300 MG Tablet PO (17:43)
== END 2024-01-19 16:38 | disposition home or self-care (01) ==
LOC: ED 14:14 → PCU 14:46
PROVIDERS: Admitting Provider Internal Medicine; Emergency Provider Emergency Medicine; PCP Nurse Practitioner Family; Visit Provider Internal Medicine
DX: R53.1 Weakness (principal); M06.9 Rheumatoid arthritis, unspecified; I48.91 Unspecified atrial fibrillation; E11.9 Type 2 diabetes mellitus without complications; Z79.4 Long term (current) use of insulin; R47.81 Slurred speech; F41.9 Anxiety disorder, unspecified; Z79.84 Long term (current) use of oral hypoglycemic drugs; I10 Essential (primary) hypertension; G43.909 Migraine, unspecified, not intractable, without status migrainosus; R20.2 Paresthesia of skin; E78.5 Hyperlipidemia, unspecified; K21.9 Gastro-esophageal reflux disease without esophagitis; Z79.899 Other long term (current) drug therapy; F32.A Depression, unspecified
CPT/HCPCS: 36415; 70450; 70496; 70498; 70551; 71045; 80048; 80053; 80061; 81001; 82962; 83036; 84443; 84484; 85025; 85610; 85730; 92610; 93005; 93306; 94762; 96374; 96375; 97162; 97166; 99221; 99285; Q9967; G0378